=== PATIENT | male | born 1990 | race Caucasian/White ===

== ENCOUNTER 2018-05-08 19:37 | Emergency (ER) | payer OTHER, MEDICAID ==
[~2018-05-08] VITALS: Ht 177.8 cm; Wt 90.7 kg
[~2018-05-08 19:37] MED LIST: DEPAKOTE 250MG250 M1 PO; DEPAKOTE ER500 MG PO; LATUDA120 MG PO; LATUDA20 MG PO
[2018-05-08] MEDS ORDERED: KEFLEX500 M1 PO (20:08)
[2018-05-08 20:10] VITALS: BP 140/70
== END 2018-05-08 20:10 | disposition home or self-care (01) ==
LOC: M.ERS 19:37
DX: S20.462A Insect bite (nonvenomous) of left back wall of thorax, initial encounter (principal); L08.9 Local infection of the skin and subcutaneous tissue, unspecified; W57.XXXA Bitten or stung by nonvenomous insect and other nonvenomous arthropods, initial encounter; Y93.89 Activity, other specified; Y92.89 Other specified places as the place of occurrence of the external cause; Y99.8 Other external cause status; F32.9 Major depressive disorder, single episode, unspecified; F20.9 Schizophrenia, unspecified; F17.210 Nicotine dependence, cigarettes, uncomplicated; Z88.0 Allergy status to penicillin